=== PATIENT | female | born 1990 | race Caucasian/White ===

== ENCOUNTER 2016-11-08 12:45 | Inpatient (IN) | payer OTHER ==
[2016-11-08] MEDS ORDERED: Sodium Chloride 0.9% 1,000 ML IV STA ×4 (13:11→19:51)
[2016-11-08 13:24] LABS: ABG ALLEN TEST YES; ARTERIAL BLOOD GAS HCO3 23.5 mmol/L (21-28); ARTERIAL BLOOD GAS PH 7.57 (7.35-7.45); ARTERIAL BLOOD GAS PO2 100 mm/Hg (80-100)
[2016-11-08 13:24] LABS: BASO # 0.1 K/uL (0.0-0.2); BASO % 0.6 % (0.0-2.0); HEMATOCRIT 35.9 % (34.0-47.0); LYMPH # 0.9 K/uL (1.0-4.3); LYMPH % 4.4 % (20.0-40.0); MEAN CELL VOLUME 80.1 fl (81.0-99.0); MEAN CORPUSCULAR HEMOGLOBIN 26.3 pg (27.0-31.0); MEAN CORPUSCULAR HGB CONC 32.8 g/dL (33.0-37.0); MEAN PLATELET VOLUME 8.4 fl (7.2-11.7); MONO # 1.1 K/uL (0.0-0.8); MONO % 5.6 % (0.0-10.0); NEUT # 18.2 K/uL (1.8-7.0); NEUT % 89.4 % (50.0-75.0); NRBC % 0.1 % (0.0-0.0); PLATELET COUNT 250 K/uL (130-400); RED CELL DISTRIBUTION WIDTH 14.9 % (11.5-14.5)
[2016-11-08 13:37] LABS: ALB/GLOB RATIO 0.9 (1.0-2.1); ALKALINE PHOSPHATASE 102 U/L (38-126); ALT/SGPT 31 U/L (9-52); AMYLASE 49 U/L (30-110); AST/SGOT 47 U/L (14-36); BLOOD UREA NITROGEN 11 mg/dl (7-17); CALCIUM 9.1 mg/dL (8.4-10.2); CARBON DIOXIDE 16 mmol/L (22-30); CHLORIDE 95 mmol/L (98-107); GFR AFRICAN-AMERICAN > 60; GLUCOSE,RANDOM 368 mg/dL (65-105); LIPASE 16 U/L (23-300); MAGNESIUM 1.8 MG/DL (1.6-2.3); SODIUM 134 mmol/l (132-148); TOTAL PROTEIN 8.2 G/DL (6.3-8.2)
[2016-11-08 13:43] LABS: WHITE BLOOD COUNT 20.4 K/uL (4.8-10.8)
--- NOTE | 2016-11-08 13:45 | ED PDOC ---
Addendum entered and electronically signed by Barron Moss MD 11/14/16 03:04: - PA / OPEN TENTER OPERATOR / Resident Statement MD/DO has reviewed & agrees with the documentation as recorded. (PT. seen at bedside having rigors, HR elevated. ICU consult placed.) Addendum entered and electronically signed by Abraham Armstrong PA-C 11/08/16 19:58: Addendum Addendum: 11/08/16 19:51 patient started to have rigors, back pain, found to be tachy at 150; appears to be ST on CM; lungs CTA ekg repeat: ST at 144 normal intervals, no acute changes rectal temp 102.1 - 650 tylenol ordered Fluids opened for bolus of 1 litter morphine ordered for pain glucose FS- [address] Starks, discussed new finding discussed, requests ICU consult Case discussed with Dr. Bella, will be down for evaluation. Original Note: HPI: Abdomen Time Seen by Provider: 11/08/16 13:02 Chief Complaint (Nursing): GI Problem Chief Complaint (Provider): GI problem History Per: Patient History/Exam Limitations: no limitations Onset/Duration Of Symptoms: Days (2x) Current Symptoms Are (Timing): Still Present Severity: Moderate Associated Symptoms: Fever, Chills, Nausea, Vomiting, Back Pain Additional Complaint(s): 26 year old female patient with a past medical history of diabetic ketoacidosis presents to the ED with complaints of a GI problem. She has been having symptoms of nausea, vomiting, back pain, fever, chills, dizziness, and a headache for the past 2x days. She reports that she has nothing to check her sugar with, but she's been drinking extra fluids with no relief.S he went to see her PMD today, she found out she had a glucose level in the 400's so she was sent to the ED. PMD: Chaya Orozco MD. Past Medical History Reviewed: Historical Data, Nursing Documentation Vital Signs: Last Vital Signs Temp 98.3 F 11/08/16 18:14 Pulse 96 H 11/08/16 18:14 Resp 20 11/08/16 18:14 BP 120/65 11/08/16 18:14 Pulse Ox 99 11/08/16 19:31 - Medical History PMH: Diabetes (NIDDM) - Surgical History Surgical History: No Surg Hx - Family History Family History: States: Unknown Family Hx - Social History Alcohol: Social Drugs: Denies - Home Medications Home Medications: Ambulatory Orders Medication Instructions Recorded Metformin Hydrochloride [Metformin] 500 mg PO BID #14 tab 03/27/15 Ofloxacin [Ofloxacin 5 ml] 1 drop OS QID #30 carrie 03/27/15 - Allergies Allergies/Adverse Reactions: Allergies Allergy/AdvReac Type Severity Reaction Status Date / Time No Known Allergies Allergy Verified 03/27/15 18:17 Review of Systems ROS Statement: Except As Marked, All Systems Reviewed And Found Negative Constitutional: Positive for: Fever, Chills Cardiovascular: Negative for: Chest Pain Respiratory: Negative for: Shortness of Breath Gastrointestinal: Positive for: Nausea, Vomiting Musculoskeletal: Positive for: Back Pain Neurological: Positive for: Headache, Dizziness Physical Exam - Physical Exam Appears: Positive for: Well, Uncomfortable, In Acute Distress (mild GI distress) Skin: Positive for: Warm, Dry. Negative for: Normal Color (flushed) Eye Exam: Positive for: Normal appearance Neck: Positive for: Normal Cardiovascular/Chest: Positive for: Regular Rate, Rhythm, Chest Non Tender Respiratory: Positive for: Normal Breath Sounds. Negative for: Respiratory Distress Gastrointestinal/Abdominal: Positive for: Normal Exam, Soft. Negative for: Tenderness Back: Positive for: Normal Inspection, L CVA Tenderness, R CVA Tenderness Extremity: Positive for: Normal ROM, Capillary Refill (normal ). Negative for: Tenderness Neurologic/Psych: Positive for: Alert, Oriented (3x), Mood/Affect (emotional), Gait (normal ). Negative for: Motor/Sensory Deficits - Laboratory Results Result Diagrams: 11/08/16 13:10 11/08/16 13:10 - ECG O2 Sat by Pulse Oximetry: 99 (RA) Pulse Ox Interpretation: Normal - Radiology X-Ray: Read By Radiologist X-Ray Interpretation: No Acute Disease Medical Decision Making Medical Decision Makin:02 Initial impression: 26 year old female patient with a history of DKA has GI symptoms, fever, headache, dizziness, an back pain. Differential diagnoses include but are not limited to DKA, elevated sugars. Initial plan: * XRay chest 2 views * ABG shock panel * EKG * amylase * CMP * ketone serum, qualitative * lipase * magnesium * udip * CBC * IV NS 1,000ml: 1,000mls/hr * tylenol 974mg PO * zofran 4mg IVP * blood culture * urine culture * influlenza AB * rapid strep group A antigen * urinalysis * reevaluation 15:00 Blood work showed an elevated white blood cell count with a left shift, normal lactic acid. ABG was reviewed, no evidence of DKA. Her urine shows an infection , rocephin is ordered. Her glucose level was above 300, gave her second litter of NS fluids and 6 insulin IV. Her glucose level lowered to 270, continue IV fluids and order more insulin. ABG reviewed by Dr. Waters agrees with no signs of DKA, LA normal, Ph 7.5 CT for kidney evaluation. Patient has clinical pyelonephritis and will be admitted to [facility] on-call. Scribe Attestation: Documented by Courtney Nj, acting as a scribe for Abraham Armstrong MD. Provider Scribe Attestation: All medical record entries made by the Scribe were at my direction and personally dictated by me. I have reviewed the chart and agree that the record accurately reflects my personal performance of the history, physical exam, medical decision making, and the department course for this patient. I have also personally directed, reviewed, and agree with the discharge instructions and disposition. FINDINGS: Lower thorax: No acute findings. ABDOMEN: Liver: There is hepatomegaly and fatty infiltration of the liver. Liver length is 23.8 cm.There are no focal liver lesions present. Gallbladder and bile ducts: Unremarkable. No calcified stones. No ductal dilation. Pancreas: Unremarkable. No mass. No ductal dilation. Spleen: Unremarkable. No splenomegaly. Adrenals: Unremarkable. No mass. Kidneys and ureters: Heterogeneous enhancement pattern of the LEFT kidney consistent with acute pyelonephritis. No obstructing stones or hydronephrosis. Stomach and bowel: Unremarkable. No obstruction. No mucosal thickening. Appendix: A normal appendix is identified. PELVIS: Bladder: Minimal wall thickening consistent with UTI. No mass. Reproductive: Dominant rim enhancing follicle noted in the LEFT ovary. Normal RIGHT ovary and uterus. ABDOMEN and PELVIS: Intraperitoneal space: Unremarkable. No free air. No significant fluid collection. Bones/joints: No acute fracture. No dislocation. Soft tissues: There is a small fat-containing umbilical hernia. Vasculature: Unremarkable. No abdominal aortic aneurysm. Lymph nodes: Unremarkable. No enlarged lymph nodes. IMPRESSION: Acute LEFT pyelonephritis. Severe hepatomegaly and fatty infiltrative liver Thank you for allowing us to participate in the care of your patient. Dictated and Authenticated by: Xiomy Valdez MD 11/08/2016 6:08 PM Eastern Time ([place] & [place]) CT as above. call placed to Dr. Starks medicine showroom consultant. repeat glucose 260 patient would like a meal, insulin SC ordered. Case discussed with Dr. Starks including H&P, labs, new vitals, CT scan, all labs including ABG and accepts patient to her service. agrees with samuelhigretchen BP-120/65; P-96; T-98.3 Disposition - Clinical Impression Clinical Impression: Pyelonephritis, Uncontrolled diabetes mellitus, Dehydration - Patient ED Disposition Is Patient to be Admitted: No Counseled Patient/Family Regarding: Studies Performed, Diagnosis - Disposition Disposition Time: 18:30 Condition: STABLE - Pt Status Changed To: Hospital Disposition Of: Inpatient - Admit Certification Admit to Inpatient:: After my assessment, the patient will require hospitalization for at least two midnights. This is because of the severity of symptoms shown, intensity of services needed, and/or the medical risk in this patient being treated as an outpatient. - POA Present On Arrival: Poor Glycemic Control
[2016-11-08] MEDS ORDERED: Insulin Regular 100 units/ml IV STA (14:04)
[2016-11-08 14:09] LABS: RBC URINE 91 /hpf (0-3); URINE BACTERIA OCC (<OCC); URINE BILIRUBIN NEGATIVE (NEGATIVE); URINE BLOOD MODERATE (NEGATIVE); URINE COLOR YELLOW (YELLOW); URINE GLUCOSE (UA) >=500 mg/dL (Normal); URINE KETONE 80 mg/dL (NEGATIVE); URINE LEUKOCYTE ESTERASE MODERATE Leu/uL (Negative); URINE PROTEIN 100 mg/dL (NEGATIVE); URINE UROBILINOGEN 0.2-1.0 mg/dL (0.2-1.0); WBC URINE 77 /hpf (0-5)
[2016-11-08 14:21] LABS: NEUTROPHIL 81 % (42-75); TOTAL CELLS COUNTED 100
[2016-11-08 14:24] LABS: LARGE PLATELETS PRESENT
--- NOTE | 2016-11-08 14:32 | RAD ---
HISTORY: fever, chills COMPARISON: No prior. TECHNIQUE: Chest PA and lateral FINDINGS: LUNGS: No active pulmonary disease. PLEURA: No significant pleural effusion identified. No pneumothorax apparent. CARDIOVASCULAR: Normal. OSSEOUS STRUCTURES: No significant abnormalities. VISUALIZED UPPER ABDOMEN: Normal. OTHER FINDINGS: None. IMPRESSION: No active disease.
[2016-11-08] MEDS ORDERED: cefTRIAXone (Rocephin) 1 gm Inj ONE (15:09)
[2016-11-08] MEDS ORDERED: Insulin Regular 100 units/ml SC STA ×2 (15:59→18:56)
[2016-11-08] MEDS ORDERED: Iohexol 300 100 ML IJ ONE (17:15)
[2016-11-08] MEDS ORDERED: Sodium Chloride 0.9% 50 ML IV ONE (17:16)
[2016-11-08] MEDS ORDERED: Insulin Regular 100 units/ml ONE (18:15)
[2016-11-08] MEDS ORDERED: Gentamicin 80 mg/2mL Inj. ONE (19:50)
[2016-11-08] MEDS ORDERED: Gentamicin 80mg/50ml NS 50 ML IVPB STA (19:51)
--- NOTE | 2016-11-08 20:43 | CP.PCM.CON ---
History of Present Illness - History of Present Illness History of Present Illness: Attending: Adryan Starks MD PCP: Chaya Orozco MD Reason for Consult: Evaluation for IVCU and Critical care management Chief Complaint: Fever/Back pain/vomiting HPI: 26 years old Female with Hx of DM with Ketoacidosis, last time taking Metformin was 6 weeks ago, Now being sent to the ED by her PCP today, because of 3 days of body aches, nausea, vomiting, fever, and pain to both left and right flanks, the right worse than the left, continuous, not radiating to the groin with minimal relief with Advil. She referred no dysuria but had urinary frequency, dizziness and headaches. She also had a blood Glucose of 364mg/dl and urine +ve for ketones in the PCP's office. Here in the ED the patient was had rigors, a rectal temperature of 102.1F; tachycardia of 150/min ; and a WBC of 25.4 thousand. The blood sugar was 368mg/dl and Ketones +ve in the urine. 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 absent: Anorexia, Lethargy, Weakness - EENT Eyes: Requires Corrective Lenses. absent: Blurred Vision, Diplopia, Photophobia , Sees Flashes Ears: absent: Decreased Hearing, Ear Discharge, Ear Pain, Tinnitus Nose/Mouth/Throat: Dry Mouth. absent: Epistaxis, Nasal Congestion, Nasal Discharge, Sinus Pain, Sinus Pressure, Sore Throat - Cardiovascular Cardiovascular: Rapid Heart Rate. absent: Chest Pain, Dyspnea, Edema, Lightheadedness - Respiratory Respiratory: absent: Cough, Dyspnea, Wheezing, Stridor - Gastrointestinal Gastrointestinal: Nausea, Vomiting. absent: Abdominal Pain, Constipation, Diarrhea - Genitourinary Genitourinary: Flank Pain, Urinary Frequency. absent: Dysuria, Hematuria, Freq UTI - Musculoskeletal Musculoskeletal: Back Pain. absent: Arthralgias, Muscle Weakness, Neck Pain - Integumentary Integumentary: absent: Pruritus, Rash, Skin Ulcer, Sores, Striae, Swelling - Neurological Neurological: Dizziness, Headaches. absent: Confusion, Memory Loss, Weakness - Psychiatric Psychiatric: Anxiety. absent: Confusion, Depression, Panic Attacks - Endocrine Endocrine: Polydipsia. absent: Palpitations, Polyphagia, Polyuria - Hematologic/Lymphatic Hematologic: absent: Easy Bleeding, Easy Bruising Past Patient History - Past Medical History & Family History Past Medical History?: Yes - Past Social History Smoking Status: Light Smoker < 10 Cigarettes Daily Chewing Tobacco Use: No Cigar Use: No Alcohol: Social Drugs: Denies Home Situation {Lives}: With Family - CARDIAC Hx Cardiac Disorders: No - PULMONARY Hx Respiratory Disorders: No - NEUROLOGICAL Hx Neurological Disorder: No - HEENT Hx HEENT Problems: No - RENAL Hx Chronic Kidney Disease: No - ENDOCRINE/METABOLIC Hx Endocrine Disorders: Yes Hx Diabetes Mellitus Type 2: Yes - HEMATOLOGICAL/ONCOLOGICAL Hx Blood Disorders: No - INTEGUMENTARY Hx Dermatological Problems: No - MUSCULOSKELETAL/RHEUMATOLOGICAL Hx Musculoskeletal Disorders: No - GASTROINTESTINAL Hx Gastrointestinal Disorders: No - GENITOURINARY/GYNECOLOGICAL Hx Genitourinary Disorders: No - PSYCHIATRIC Hx Psychophysiologic Disorder: No Hx Substance Use: No - SURGICAL HISTORY Hx Section: Yes - ANESTHESIA Hx Anesthesia: Yes Hx Anesthesia Reactions: No Meds Allergies/Adverse Reactions: Allergies Allergy/AdvReac Type Severity Reaction Status Date / Time No Known Allergies Allergy Verified 11/08/16 20:05 - Medications Medications: Current Medications Sodium Chloride (Sodium Chloride 0.9%) 1,000 mls @ 500 mls/hr IV .Q2H STA Stop: 11/08/16 20:48 Last Admin: 11/08/16 18:52 Dose: 500 mls/hr Gentamicin Sulfate/Sodium Chloride (Gentamicin 80mg/50ml Ns) 50 mls @ 50 mls/ hr IVPB STAT STA Stop: 11/08/16 20:50 Last Admin: 11/08/16 20:12 Dose: 50 mls/hr Sodium Chloride (Sodium Chloride 0.9%) 1,000 mls @ 1,000 mls/hr IV .Q1H STA Stop: 11/08/16 20:50 Last Admin: 11/08/16 19:58 Dose: 1,000 mls/hr Physical Exam - Constitutional Appears: No Acute Distress - Head Exam Head Exam: ATRAUMATIC, NORMAL INSPECTION, NORMOCEPHALIC - Eye Exam Eye Exam: EOMI, Normal appearance Pupil Exam: NORMAL ACCOMODATION, PERRL - ENT Exam ENT Exam: Mucous Membranes Moist, Normal Exam, Normal External Ear Exam, Normal Oropharynx - Neck Exam Neck exam: Positive for: Full Rom, Normal Inspection. Negative for: Lymphadenopathy, Tenderness - Respiratory Exam Respiratory Exam: Clear to Auscultation Bilateral. absent: Rales, Rhonchi, Wheezes - Cardiovascular Exam Cardiovascular Exam: Tachycardia, REGULAR RHYTHM, +S1, +S2. absent: Gallop - GI/Abdominal Exam GI & Abdominal Exam: Normal Bowel Sounds, Soft. absent: Mass, Tenderness - Rectal Exam Rectal Exam: Deferred - Extremities Exam Extremities exam: Positive for: normal inspection. Negative for: calf tenderness, full ROM, pedal edema - Back Exam Back exam: CVA tenderness (L), CVA tenderness (R), NORMAL INSPECTION - Neurological Exam Neurological exam: Alert, CN II-XII Intact, Oriented x3, Reflexes Normal - Psychiatric Exam Psychiatric exam: Normal Affect, Normal Mood - Skin Skin Exam: Dry, Intact, Normal Color, Warm Results - Vital Signs Recent Vital Signs: Last Vital Signs Temp 102.1 F H 11/08/16 19:55 Pulse 140 H 11/08/16 19:40 Resp 17 11/08/16 19:40 BP 145/67 11/08/16 19:40 Pulse Ox 100 11/08/16 19:40 - Labs Result Diagrams: 11/08/16 13:10 11/08/16 21:25 - EKG Data EKG comments: Sinus Tachycardia 144/min. No sign of Ischemia - Imaging and Cardiology Chest x-ray Status: Report reviewed by me Additional comment: No infiltrate Assessment & Plan - Assessment and Plan (Free Text) Assessment: #. Acute Pyelonephritis #. sepsis #. Uncontrolled DM II with Ketosis Plan: 26 years old Female with Hx of DM with Ketoacidosis, last time taking Metformin was 6 weeks ago, Now being sent to the ED by her PCP today, because of 3 days of body aches, nausea, vomiting, fever, and pain to both left and right flanks, Frequency, no dysuria, elevated blood Glucose and urine ketones. #. Acute Pyelonephritis - Gentamycin 80mg IV Q8 - Rocephin 1gm daily - IV fluids NS - pain management with Toradol #. Sepsis with HR of 131/min; Temperature of 102.1F; WBC of 20.4 and a pyelonephritis - Consult Dr Barnett ID - follow Blood and urine Cultures - Antibiotics - IV fluids #. Uncontrolled DM II with Ketosis and elevated Anion gap - Patient received 3L of NS in ED - continue with Normal saline at 150/hr - Follow Anion gap, CO2 and electrolytes in blood works - Regular Insulin with accucheck Q4hrs - Levemir 10units HS and start Diabetic Diet #. DVT prophylaxis with Lovenox #. Code Status: Full - Date & Time Date: 11/08/16 Time: 20:43
[2016-11-08] MEDS ORDERED: Insulin Lispro (humaLOG) 100 Units/ml Inj SC SCH (21:15)
[2016-11-08 21:53] LABS: BLOOD UREA NITROGEN 12 mg/dl (7-17); CALCIUM 7.8 mg/dL (8.4-10.2); CARBON DIOXIDE 17 mmol/L (22-30); CHLORIDE 103 mmol/L (98-107); GFR AFRICAN-AMERICAN > 60; GLUCOSE,RANDOM 295 mg/dL (65-105); POTASSIUM 3.6 MMOL/L (3.6-5.0); SODIUM 133 mmol/l (132-148)
[2016-11-08] MEDS: Insulin Detemir 100 Units/ml Inj SC SCH (23:53)
[2016-11-09] MEDS: Insulin Regular 100 units/ml SC SCH ×7 (04:00→21:30)
[2016-11-09 07:12] LABS: BASO # 0.1 K/uL (0.0-0.2); BASO % 0.4 % (0.0-2.0); EOS % 0.1 % (0.0-4.0); HEMATOCRIT 30.9 % (34.0-47.0); LYMPH % 6.5 % (20.0-40.0); MEAN CELL VOLUME 80.6 fl (81.0-99.0); MEAN CORPUSCULAR HEMOGLOBIN 26.3 pg (27.0-31.0); MEAN CORPUSCULAR HGB CONC 32.6 g/dL (33.0-37.0); MEAN PLATELET VOLUME 8.4 fl (7.2-11.7); MONO # 1.2 K/uL (0.0-0.8); MONO % 8.1 % (0.0-10.0); NEUT # 12.7 K/uL (1.8-7.0); NEUT % 84.9 % (50.0-75.0); RED CELL DISTRIBUTION WIDTH 15.1 % (11.5-14.5)
--- NOTE | 2016-11-09 07:12 | CT ---
PROCEDURE: CT Abdomen and Pelvis with contrast HISTORY: fever, UTI COMPARISON: None. TECHNIQUE: Contrast dose: Radiation dose: Total exam DLP = mGy-cm. FINDINGS: LOWER THORAX: Unremarkable. LIVER: Unremarkable. No gross lesion or ductal dilatation. GALLBLADDER AND BILE DUCTS: Unremarkable. PANCREAS: Unremarkable. No gross lesion or ductal dilatation. SPLEEN: Unremarkable. ADRENALS: Unremarkable. No mass. KIDNEYS AND URETERS: Heterogeneous enhancement of the left kidney consistent with pyelonephritis. VASCULATURE: Unremarkable. No aortic aneurysm. BOWEL: Unremarkable. No obstruction. No gross mural thickening. APPENDIX: Normal appendix. PERITONEUM: Unremarkable. No free fluid. No free air. LYMPH NODES: Unremarkable. No enlarged lymph nodes. BLADDER: Unremarkable. REPRODUCTIVE: Unremarkable. BONES: No acute fracture. OTHER FINDINGS: None. IMPRESSION: Left pyelonephritis.
[2016-11-09 07:21] LABS: BLOOD UREA NITROGEN 17 mg/dl (7-17); CARBON DIOXIDE 20 mmol/L (22-30); CHLORIDE 104 mmol/L (98-107); GFR AFRICAN-AMERICAN > 60; GLUCOSE,RANDOM 299 mg/dL (65-105); POTASSIUM 3.8 MMOL/L (3.6-5.0); SODIUM 139 mmol/l (132-148)
[2016-11-09] MEDS ORDERED: Insulin Regular 100 units/ml SC SCH (07:30)
--- NOTE | 2016-11-09 07:44 | CP.CCUPN ---
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 T max yesterday 102.3F, now afebrile, BP 108 systolic, HR 120 sinus, SPO2 98% on RA, no urine output recorded. ROS: as above, no other pertinent negs or positives on 10 system review. PMFSH: all nursing and historical notes reviewed, no new pertinent data relevant to current problems. No other distress noted: EXAM- HEENT: no icterus, pupils equal and reactive NECK: no visible JVD, supple, carotids equal upstroke bilat/no bruits CHEST: decreased BS bases, no wheezes audible HEART: regular, tachy S1S2, no murmur audible, no rubs. ABD: soft, no increased distention, no focal tenderness, no HSM. BS hypoactive , EXT: no leg edema, no peripheral/ digital cyanosis, no calf tenderness or palpable cords, distal pulses intact and symmetrical NEURO: no gross focal motor deficits, AOx3 SKIN: no rashes LABS: WBC= 15.0 HGB= 10.1 PLTs= 180K Na= 139 K= 3.8 HCO3= 20 BUN/Cr= 17/0.7 BS= 299 CTAP results and film reviewed. Assessment: 1. Acute L Pyelonephritis 2. Uncontrolled DM 3. Chronic Disease Anemia PLAN: 1. Empiric Abx coverage with Rocephin/Gent, ID eval already ordered. Awaiting culture results. 2. May need IV insulin drip for improved control and maintenance of normoglycemia during this illness. Check Hgb A1c. 3. Has recd 3.0-3.5 L continue IVF hydration with LR. 4. Lactate levels normal.
--- NOTE | 2016-11-09 08:17 | CARD ---
APPROVED REPORT EKG Measurement Heart [id number] <Conclusion> Sinus tachycardia Nonspecific ST abnormality Abnormal ECG
[2016-11-09] MEDS ORDERED: Gentamicin 80mg/50ml NS 50 ML IVPB SCH (09:00)
[2016-11-09] MEDS: Lactated Ringer's 1,000 ML IV SCH ×2 (09:32→17:16)
[2016-11-09] MEDS: Enoxaparin 40 mg Syringe SC SCH (09:34)
[2016-11-09] MEDS: Meropenem 1 GM in Sodium Chloride 0.9% 100 ML IVPB SCH ×2 (12:37→23:22)
[2016-11-09] MEDS: Aztreonam 1 GM in Sodium Chloride 0.9% 100 ML IVPB SCH (21:00)
[2016-11-09] MEDS: Insulin Detemir 100 Units/ml Inj SC SCH (21:03)
--- NOTE | 2016-11-09 22:23 | CP.PCM.HP ---
History of Present Illness - History of Present Illness History of Present Illness: A 26 yr old female is with PMHx of DM ,migraine headaches was not on meds for few months is here with hx of left side back ache,started worsening for few days . UA found to be positive for infection.does have high fever ,denies nausea \vomiting. in ER she became tachycardic ,BP stable. Present on Admission - Present on Admission Any Indicators Present on Admission: No Review of Systems - Review of Systems Systems not reviewed;Unavailable: Unstable Vital Signs - Constitutional Constitutional: Fever, Headache, Malaise. absent: Snoring - EENT Eyes: Other Visual Disturbances. absent: Blurred Vision, Change in Vision Ears: absent: Dizziness Nose/Mouth/Throat: absent: Hoarsness, Sore Throat - Cardiovascular Cardiovascular: Rapid Heart Rate. absent: Chest Pain, Edema, Palpitations - Respiratory Respiratory: absent: Cough, Dyspnea, Chest Congestion, Excessive Mucous Production - Gastrointestinal Gastrointestinal: absent: Abdominal Pain, Bloating, Nausea, Vomiting - Genitourinary Genitourinary: Dysuria, Flank Pain. absent: Urinary Urgency - Musculoskeletal Musculoskeletal: absent: Arthralgias, Muscle Cramps - Neurological Neurological: absent: Tremor - Psychiatric Psychiatric: absent: Anxiety, Depression - Endocrine Endocrine: Fatigue - Hematologic/Lymphatic Hematologic: absent: Easy Bleeding, Lymphadenopathy Past Patient History - Past Medical History & Family History Past Medical History?: Yes - Past Social History Smoking Status: Light Smoker < 10 Cigarettes Daily Chewing Tobacco Use: No Cigar Use: No Alcohol: Social Drugs: Denies Home Situation {Lives}: With Family - CARDIAC Hx Cardiac Disorders: No - PULMONARY Hx Respiratory Disorders: No - NEUROLOGICAL Hx Neurological Disorder: No - HEENT Hx HEENT Problems: No - RENAL Hx Chronic Kidney Disease: No - ENDOCRINE/METABOLIC Hx Endocrine Disorders: Yes Hx Diabetes Mellitus Type 2: Yes - HEMATOLOGICAL/ONCOLOGICAL Hx Blood Disorders: No - INTEGUMENTARY Hx Dermatological Problems: No - MUSCULOSKELETAL/RHEUMATOLOGICAL Hx Musculoskeletal Disorders: No - GASTROINTESTINAL Hx Gastrointestinal Disorders: No - GENITOURINARY/GYNECOLOGICAL Hx Genitourinary Disorders: No - PSYCHIATRIC Hx Psychophysiologic Disorder: No Hx Substance Use: No - SURGICAL HISTORY Hx Section: Yes - ANESTHESIA Hx Anesthesia: Yes Hx Anesthesia Reactions: No Meds Allergies/Adverse Reactions: Allergies Allergy/AdvReac Type Severity Reaction Status Date / Time No Known Allergies Allergy Verified 11/08/16 20:05 Physical Exam - Constitutional Appears: In Acute Distress Additional comments: pain - Head Exam Head Exam: NORMAL INSPECTION - Eye Exam Eye Exam: EOMI, Normal appearance - ENT Exam ENT Exam: Mucous Membranes Dry - Neck Exam Neck exam: Negative for: Lymphadenopathy - Respiratory Exam Respiratory Exam: Clear to Auscultation Bilateral, NORMAL BREATHING PATTERN. absent: Decreased Breath Sounds - Cardiovascular Exam Cardiovascular Exam: Tachycardia, REGULAR RHYTHM, +S1, +S2 - GI/Abdominal Exam GI & Abdominal Exam: Normal Bowel Sounds, Soft. absent: Organomegaly, Tenderness - Extremities Exam Extremities exam: Positive for: normal capillary refill, pedal pulses present. Negative for: pedal edema - Back Exam Back exam: CVA tenderness (L). absent: rash noted - Neurological Exam Neurological exam: Alert, CN II-XII Intact, Oriented x3 - Psychiatric Exam Psychiatric exam: Normal Affect, Normal Mood - Skin Skin Exam: Normal Color Results - Vital Signs Recent Vital Signs: Last Vital Signs Temp 102.9 F H 11/09/16 21:06 Pulse 112 H 11/09/16 21:06 Resp 20 11/09/16 21:06 BP 118/59 L 11/09/16 18:08 Pulse Ox 100 11/09/16 21:06 - Labs Result Diagrams: 11/11/16 05:10 11/12/16 11:45 Labs: Laboratory Results - last 24 hr 11/08/16 11/09/16 11/09/16 23:52 02:56 05:30 WBC 15.0 H RBC 3.83 Hgb 10.1 L Hct 30.9 L MCV 80.6 L MCH 26.3 L MCHC 32.6 L RDW 15.1 H Plt Count 180 MPV 8.4 Neut % (Auto) 84.9 H Lymph % (Auto) 6.5 L Darke % (Auto) 8.1 Eos % (Auto) 0.1 Baso % (Auto) 0.4 Neut # 12.7 H Lymph # 1.0 Darke # 1.2 H Eos # 0.0 Baso # 0.1 Sodium 139 Potassium 3.8 Chloride 104 Carbon Dioxide 20 L Anion Gap 19 BUN 17 Creatinine 0.7 Est GFR ( Amer) > 60 Est GFR (Non-Af Amer) > 60 POC Glucose (mg/dL) 381 H 354 H Random Glucose 299 H Calcium 8.0 L 11/09/16 11/09/16 11/09/16 08:04 12:14 15:57 WBC RBC Hgb Hct MCV MCH MCHC RDW Plt Count MPV Neut % (Auto) Lymph % (Auto) Darke % (Auto) Eos % (Auto) Baso % (Auto) Neut # Lymph # Darke # Eos # Baso # Sodium Potassium Chloride Carbon Dioxide Anion Gap BUN Creatinine Est GFR ( Amer) Est GFR (Non-Af Amer) POC Glucose (mg/dL) 309 H 304 H 272 H Random Glucose Calcium 11/09/16 20:41 WBC RBC Hgb Hct MCV MCH MCHC RDW Plt Count MPV Neut % (Auto) Lymph % (Auto) Darke % (Auto) Eos % (Auto) Baso % (Auto) Neut # Lymph # Darke # Eos # Baso # Sodium Potassium Chloride Carbon Dioxide Anion Gap BUN Creatinine Est GFR ( Amer) Est GFR (Non-Af Amer) POC Glucose (mg/dL) 285 H Random Glucose Calcium - EKG Data EKG Interpreted by: Other - Imaging and Cardiology CT scan - abdomen Status: Report reviewed by me Chest x-ray Status: Report reviewed by me Assessment & Plan (1) Sepsis due to urinary tract infection Status: Acute (2) Dehydration Status: Acute (3) Uncontrolled diabetes mellitus Status: Acute (4) Ketoacidosis Status: Acute - Assessment and Plan (Free Text) Plan: 1. IVF 2.ICU CONSULT 3. ID CONSULT 4. IV ABX 5, TYELENOL prn 5.likley ketoacidosis is due to sepsis 6. monitor vitals and labs. Decision To Admit - Pt Status Changed To: Hospital Disposition Of: Inpatient - Admit Certification Admit to Inpatient:: After my assessment, the patient will require hospitalization for at least two midnights. This is because of the severity of symptoms shown, intensity of services needed, and/or the medical risk in this patient being treated as an outpatient. - . Bed Request Type: Intensive Care Admitting Physician: Adryan Starks
[2016-11-10] MEDS: Lactated Ringer's 1,000 ML IV SCH ×3 (04:50→21:20)
[2016-11-10] MEDS: Insulin Regular 100 units/ml SC SCH ×4 (05:40→12:54)
[2016-11-10 05:51] LABS: BASO % 0.3 % (0.0-2.0); HEMATOCRIT 29.7 % (34.0-47.0); LYMPH % 6.8 % (20.0-40.0); MEAN CELL VOLUME 80.4 fl (81.0-99.0); MEAN CORPUSCULAR HEMOGLOBIN 26.3 pg (27.0-31.0); MEAN CORPUSCULAR HGB CONC 32.8 g/dL (33.0-37.0); MEAN PLATELET VOLUME 8.4 fl (7.2-11.7); MONO # 1.1 K/uL (0.0-0.8); MONO % 7.3 % (0.0-10.0); NEUT # 12.4 K/uL (1.8-7.0); NEUT % 85.6 % (50.0-75.0); RED CELL DISTRIBUTION WIDTH 15.5 % (11.5-14.5); WHITE BLOOD COUNT 14.5 K/uL (4.8-10.8)
[2016-11-10 05:59] LABS: ALB/GLOB RATIO 0.7 (1.0-2.1); ALKALINE PHOSPHATASE 106 U/L (38-126); ALT/SGPT 36 U/L (9-52); AST/SGOT 42 U/L (14-36); BILIRUBIN,TOTAL 0.7 mg/dl (0.2-1.3); BLOOD UREA NITROGEN 10 mg/dl (7-17); CALCIUM 8.3 mg/dL (8.4-10.2); CARBON DIOXIDE 20 mmol/L (22-30); CHLORIDE 102 mmol/L (98-107); GFR AFRICAN-AMERICAN > 60; GLUCOSE,RANDOM 249 mg/dL (65-105); MAGNESIUM 1.9 MG/DL (1.6-2.3); POTASSIUM 3.6 MMOL/L (3.6-5.0); SODIUM 137 mmol/l (132-148); TOTAL PROTEIN 6.6 G/DL (6.3-8.2)
--- NOTE | 2016-11-10 07:48 | CON ---
DATE: 11/09/2016 HISTORY OF PRESENT ILLNESS: The patient is a 26-year-old female who has a history of diabetes who has not been taking her medications for at least 1 month. The patient stated she started feeling sick at work on , feeling fatigued, some chills and abdominal pain and went home. By Thursday morning, she had some right lower quadrant abdominal pain radiating to the back and had chills and sweats. She was also nauseous and vomiting and was unable to hold down any fluids or food. She went to see her primary care physician on Thursday, who did a blood sugar, which was over 350, probably closer to 400, but she does not remember, and advised her to go the Emergency Room, said she might be in diabetic ketoacidosis. When in the Emergency Room, it was discovered that she had a urinary tract infection and had a temperature also of 102-103. CT scan of the abdomen and pelvis showed a left pyelonephritis. it was consistent with heterogeneous enhancement of the left kidney consistent with pyelonephritis. LABORATORY DATA: White count is 20.4 on 11/08. On 11/09, which is today, the white count is 15. Hemoglobin is 10.1. She has a marked shift to the left and showed 6 bands. Chemistry showed a GFR of greater than 60 and a creatinine of 0.7. Her glucose were all over 300 and also her micro shows gram-negative rods in the urine. So far, no blood cultures, no growth after 24 hours, so we are waiting for those results. IMPRESSION AND PLAN: At the present time, I feel this is pyelonephritis and uncontrolled diabetes mellitus. The pyelonephritis, at the present time, would treat with meropenem 1 gram IV piggyback every 12 hours and Azactam 1 gram IV piggyback every 12 hours also. Would discontinue the Rocephin and the gentamicin at the present time. We will await the culture results and make decision whether we should continue with the meropenem and Azactam or refer her to another antibiotic therapy. PHYSICAL EXAMINATION: HEENT: The patient's tongue is dry. NECK: Supple, no adenopathy. LUNGS: Clear. HEART: Regular sinus rhythm, mildly tachycardic. ABDOMEN: Soft with right and left lower quadrant tenderness and left CVA tenderness, but, also, she has tenderness on the right CVA area also. EXTREMITIES: No CCE. DIAGNOSES: Once again, the diagnosis is uncontrolled diabetes mellitus, urinary tract infection with resultant pyelonephritis and treatment as already outlined. Alejo Barnett MD cc: [phone] TT: 11/10/2016 01:30:07 Confirmation # [id number] Dictation # [id number] ri 11/10/2016 06:47:29 HERMAN
[2016-11-10] MEDS: Aztreonam 1 GM in Sodium Chloride 0.9% 100 ML IVPB SCH ×2 (09:16→21:16)
[2016-11-10] MEDS: Enoxaparin 40 mg Syringe SC SCH (09:19)
[2016-11-10] MEDS: Meropenem 1 GM in Sodium Chloride 0.9% 100 ML IVPB SCH ×2 (12:55→16:44)
--- NOTE | 2016-11-10 16:07 | CP.PCM.PN ---
Subjective - Date & Time of Evaluation Date of Evaluation: 11/10/16 Time of Evaluation: 16:05 - Subjective Subjective: ID NOTE JUST HAD TEMPERATURE INCREASE TO 102.2 AFTER BEING AFEBRILE ALL DAY AND IS ACCOMPANIED BY CHILLS AND SWEATS CREATININE IS 0.5,GFR IS >60 BLOOD CULTURES SO FAR ARE NEGATIVE URINE CULTURE :E.COLI THAT SHOWS GOOD SENSITIVITIES TO MEROPEPENEM /AZACTAM HAVE ORDERED F/U BLOOD CULTURE WOULD CONSIDER OR NEPHROLOGY CONSULT Objective - Vital Signs/Intake and Output Vital Signs (last 24 hours): Temp Pulse Resp BP Pulse Ox 98.6 F 99 H 40 H 116/72 94 L 11/10/16 12:00 11/10/16 14:00 11/10/16 14:00 11/10/16 14:00 11/10/16 14:00 Intake and Output: 11/10/16 11/10/16 06:59 18:59 Intake Total 200 Balance 200 - Medications Medications: Current Medications Acetaminophen (Tylenol 325mg Tab) 650 mg PO Q4 PRN PRN Reason: Fever >100.4 F Last Admin: 11/10/16 04:56 Dose: 650 mg Enoxaparin Sodium (Lovenox) 40 mg SC DAILY NEENA PRN Reason: Protocol Last Admin: 11/10/16 09:19 Dose: 40 mg Hydromorphone HCl (Dilaudid) 1 mg IVP Q4 PRN PRN Reason: Pain, moderate (4-7) Last Admin: 11/10/16 12:50 Dose: 1 mg Lactated Ringer's (Lactated Ringer's) 1,000 mls @ 150 mls/hr IV .Q6H40M [facility] Last Admin: 11/10/16 09:18 Dose: 150 mls/hr Meropenem 1 gm/ Sodium (Chloride) 100 mls @ 100 mls/hr IVPB Q12H [facility] Last Admin: 11/10/16 12:55 Dose: 100 mls/hr Aztreonam 1 gm/ Sodium (Chloride) 100 mls @ 100 mls/hr IVPB Q12 [facility] Last Admin: 11/10/16 09:16 Dose: 100 mls/hr Insulin Detemir (Levemir) 16 units SC HS NEENA Insulin Human Lispro (Humalog) 8 units SC AC NEENA Insulin Human Lispro (Humalog) 0 units SC ACHS ENENA PRN Reason: Protocol Ketorolac Tromethamine (Toradol) 30 mg IVP Q6 PRN PRN Reason: Pain, severe (8-10) Last Admin: 11/09/16 02:46 Dose: 30 mg Ketorolac Tromethamine (Toradol) 15 mg IVP Q6 PRN PRN Reason: Pain, moderate (4-7) Ondansetron HCl (Zofran Inj) 4 mg IVP Q4 PRN PRN Reason: Nausea/Vomiting Last Admin: 11/10/16 00:38 Dose: 4 mg - Labs Labs: 11/10/16 05:10 11/10/16 05:10
[2016-11-10] MEDS: Insulin Lispro (humaLOG) 100 Units/ml Inj SC SCH ×3 (16:41→21:45)
[2016-11-10] MEDS ORDERED: Insulin Detemir 100 Units/ml Inj SC SCH (22:00)
[2016-11-10] MEDS ORDERED: Albuterol-Ipratrop 3 mg / 0.5 (3 ml) UD INH PRN (22:15)
--- NOTE | 2016-11-10 22:48 | CP.PCM.PN ---
Subjective - Date & Time of Evaluation Date of Evaluation: 11/10/16 Time of Evaluation: 16:00 - Subjective Subjective: still spiking fever. able to eat jello. pain is better with pain meds. elevated WBC, on abx. hb-10. urine c\s grew-e.coli Objective - Vital Signs/Intake and Output Vital Signs (last 24 hours): Temp Pulse Resp BP Pulse Ox 102.8 F H 98 H 18 114/59 L 91 L 11/10/16 17:40 11/10/16 22:28 11/10/16 22:00 11/10/16 22:00 11/10/16 22:00 Intake and Output: 11/10/16 11/11/16 18:59 06:59 Intake Total 300 300 Output Total 200 Balance 300 100 - Medications Medications: Current Medications Acetaminophen (Tylenol 325mg Tab) 650 mg PO Q4 PRN PRN Reason: Fever >100.4 F Last Admin: 11/10/16 16:46 Dose: 650 mg Albuterol/Ipratropium (Duoneb 3 Mg/0.5 Mg (3 Ml) Ud) 3 ml INH RQ4 PRN PRN Reason: Shortness of Breath Last Admin: 11/10/16 22:30 Dose: 3 ml Enoxaparin Sodium (Lovenox) 40 mg SC DAILY NEENA PRN Reason: Protocol Last Admin: 11/10/16 09:19 Dose: 40 mg Hydromorphone HCl (Dilaudid) 1 mg IVP Q4 PRN PRN Reason: Pain, moderate (4-7) Last Admin: 11/10/16 12:50 Dose: 1 mg Lactated Ringer's (Lactated Ringer's) 1,000 mls @ 150 mls/hr IV .Q6H40M [facility] Last Admin: 11/10/16 21:20 Dose: 150 mls/hr Aztreonam 1 gm/ Sodium (Chloride) 100 mls @ 100 mls/hr IVPB Q12 [facility] Last Admin: 11/10/16 21:16 Dose: 100 mls/hr Meropenem 1 gm/ Sodium (Chloride) 100 mls @ 100 mls/hr IVPB Q8 [facility] Last Admin: 11/10/16 16:44 Dose: 100 mls/hr Insulin Detemir (Levemir) 16 units SC HS [facility] Last Admin: 11/10/16 21:42 Dose: 16 units Insulin Human Lispro (Humalog) 8 units SC AC NEENA Last Admin: 11/10/16 16:41 Dose: 8 units Insulin Human Lispro (Humalog) 0 units SC ACHS NEENA PRN Reason: Protocol Last Admin: 11/10/16 21:45 Dose: Not Given Ketorolac Tromethamine (Toradol) 30 mg IVP Q6 PRN PRN Reason: Pain, severe (8-10) Last Admin: 11/10/16 21:18 Dose: 30 mg Ketorolac Tromethamine (Toradol) 15 mg IVP Q6 PRN PRN Reason: Pain, moderate (4-7) Ondansetron HCl (Zofran Inj) 4 mg IVP Q4 PRN PRN Reason: Nausea/Vomiting Last Admin: 11/10/16 00:38 Dose: 4 mg - Labs Labs: 11/10/16 05:10 11/10/16 05:10 - Additional Findings Additional findings: - Head Exam Head Exam: NORMAL INSPECTION - Eye Exam Eye Exam: EOMI, Normal appearance - ENT Exam ENT Exam: Mucous Membranes Dry - Neck Exam Neck exam: Negative for: Lymphadenopathy - Respiratory Exam Respiratory Exam: Clear to Auscultation Bilateral, NORMAL BREATHING PATTERN. absent: Decreased Breath Sounds - Cardiovascular Exam Cardiovascular Exam: Tachycardia, REGULAR RHYTHM, +S1, +S2 - GI/Abdominal Exam GI & Abdominal Exam: Normal Bowel Sounds, Soft. absent: Organomegaly, Tenderness - Extremities Exam Extremities exam: Positive for: normal capillary refill, pedal pulses present. Negative for: pedal edema - Back Exam Back exam: CVA tenderness (L). absent: rash noted - Neurological Exam Neurological exam: Alert, CN II-XII Intact, Oriented x3 - Psychiatric Exam Psychiatric exam: Normal Affect, Normal Mood - Skin Skin Exam: Normal Color Assessment and Plan (1) Anemia Status: Chronic (2) Dehydration Status: Acute (3) Pyelonephritis Status: Acute (4) Uncontrolled diabetes mellitus Status: Acute - Assessment and Plan (Free Text) Plan: .conntinue abx pain meds PRN BLOOD SUGRAS BETTER CONTROLLED Acidosis normalised.
[2016-11-11] MEDS: Meropenem 1 GM in Sodium Chloride 0.9% 100 ML IVPB SCH ×3 (01:08→16:43)
[2016-11-11 05:55] LABS: HEMATOCRIT 29.7 % (34.0-47.0); MEAN CELL VOLUME 79.8 fl (81.0-99.0)
[2016-11-11 06:12] LABS: BLOOD UREA NITROGEN 12 mg/dl (7-17); CALCIUM 8.3 mg/dL (8.4-10.2); CARBON DIOXIDE 24 mmol/L (22-30); CHLORIDE 101 mmol/L (98-107); GFR AFRICAN-AMERICAN > 60; GLUCOSE,RANDOM 260 mg/dL (65-105); POTASSIUM 3.2 MMOL/L (3.6-5.0); SODIUM 140 mmol/l (132-148)
[2016-11-11 06:36] LABS: MEAN CORPUSCULAR HEMOGLOBIN 25.9 pg (27.0-31.0); MEAN CORPUSCULAR HGB CONC 32.5 g/dL (33.0-37.0); RED CELL DISTRIBUTION WIDTH 15.6 % (11.5-14.5); WHITE BLOOD COUNT 13.1 K/uL (4.8-10.8)
--- NOTE | 2016-11-11 06:42 | CON ---
DATE: 11/10/2016 ICU ROOM: 435. HISTORY OF PRESENT ILLNESS: This is a 26-year-old female with known history of type 2 diabetes, prev iously on metformin therapy, which she apparently discontinued over the past week or so and presents here with generalized body weakness and supervening fevers, chills and rigors with severe flank pain and has been evaluated to have acute pyelonephritis and is also being referred now for diabetic evalu ation because of persistent hyperglycemic accelerations as noted thereof. PAST MEDICAL HISTORY: As mentioned above, history of type 2 diabetes, previously on metformin, given as 500 mg b.i.d., which she discontinued over the past week or so prior to admission. She admits to having used insulin therapy at one point, but again was switched over to oral hypoglycemic therapy. FAMILY HISTORY: Positive for diabetes and hypertension. Her mother has type 2 insulin-requiring holland betes. SOCIAL HISTORY: The patient has a supportive family. She admits to smoking half a pack a day for so me years now, but denies any other illicit drug use. REVIEW OF SYSTEMS: As mentioned above, admits to generalized body weakness with episodic dizziness a nd lightheadedness, worse on the day of admission. Also, admits to easy fatigability and tiredness a nd suboptimal energy level. No chest pains or palpitations, but admits to episodic precordial tightn ess with shortness of breath, especially on exertion. Her oral intake has been nil and suboptimal wi th persistent nausea, dyspepsia, and presented here actually with intractable vomiting episodes. Als o, admits to vague upper abdominal pain with severe flank pain, right greater than left, especially o n the day of admission. Also, admits to marked polyuria, nocturia, polydipsia over the past week or so prior to admission. PHYSICAL EXAMINATION: GENERAL: An overweight female in no apparent distress. VITAL SIGNS: Blood pressure of 140/80, pulse of 100 beats per minute and regular, temperature was in itially 102 rectally yesterday and today is 100 degrees, respirations 20. Height is 5 feet 2 inches, weight is 175 pounds. HEENT: Head normocephalic. Eyes anicteric with pink conjunctivae. Fundoscopy not possible at this time. Ears, nose and throat otherwise normal. NECK: Supple. Thyroid gland is normal size. No carotid bruits. No cervical adenopathy. CARDIOPULMONARY: Some adynamic precordium. S1, S2 is rapid and regular. LUNGS: Clear to auscultation. ABDOMEN: Flat, soft with positive bowel sounds. EXTREMITIES: No peripheral edema. Pulses are +2 bilaterally. LABORATORY DATA: Her chemistries showed a BUN of 10, sodium 137, potassium 3.6, chloride 102, CO2 of 20, glucose 249 and creatinine 0.5. Hemoglobin A1c is 13.0%, glucose levels have ranged from 238-26 6 mg/dL. ASSESSMENT: This is a 26-year-old female with uncontrolled and decompensated type 1 insulin-dependen t diabetes, presenting here with diabetic ketoacidosis and dehydration with supervening acute pyelone phritis with fever, rigors, sinus tachycardia, and severe flank pain as noted. With recent metabolic decompensation and impaired leukocytosis from the marked hyperglycemic accelerations, she really is quite high risk for infections and bacteremia as noted thereof. PLAN OF MANAGEMENT: As discussed with the patient and the staff, we will start her right away on a m ore physiologic insulin regimen with a combination of basal and bolus insulin dosing and we will star t her with Levemir, giving her 16 units subQ at bedtime daily to start tonight. We will also add Hum alog given as 8 units subQ t.i.d. before meals to start at dinnertime today as ordered. We will farzad fy the coverage scale to obviate hypoglycemia and detailed orders have been given. We will continue the vigorous IV hydration to replenish the lost fluids and electrolytes as noted. We will obtain ser ial chemistries and supplement accordingly as needed. We will also reinforce diabetic education and dietary instructions at the time of this admission. We will consult our diabetic nurse educator, Ms. Delores Hughes, to initiate insulin self-administration techniques at this time. We will also cons ult dietary for nutritional evaluation and healthier food choices with weight loss efforts if at all possible. We will obtain serial chemistries and supplement accordingly as needed. We will follow. Kendra Miller MD cc: [id number] TT: 11/11/2016 06:41:40 Confirmation # [id number] Dictation # [id number] tn
[2016-11-11] MEDS: Insulin Lispro (humaLOG) 100 Units/ml Inj SC SCH ×7 (07:04→22:00)
--- NOTE | 2016-11-11 08:15 | PN ---
DATE: 11/10/2016 LOCATION: The patient in ICU, bed 435. TIME SPENT: 35 minutes. Seen and evaluated at the bedside. Past medical, family and social history reviewed. Postop day #3 status post right total hip replacement. Postop course noted an episode of atrial fibrillation, but remains alert and awake, but confused. No distress noted. PHYSICAL EXAMINATION: VITAL SIGNS: Temperature 98.6, heart rate 99 regular, respiratory rate 12-14 noted, but mostly in the lower 20s. Oxygen saturation 94% on room air. Intake 2100, output 300, positive 1800. Weight 175 pounds. HEENT: No icterus. Pupils equal and reactive. NECK: No JVD. Supple. No carotid bruit. CHEST: Bilateral breath sounds clear to auscultation. HEART: Rhythm regular. S1, S2 normal. No audible murmur or rub. ABDOMEN: Bowel sounds present, soft. EXTREMITIES: No leg edema. No peripheral or digital cyanosis. No palpable cord. NEUROLOGIC: Awake, alert, follows simple commands, but remains mostly confused. CURRENT MEDICATIONS: Tylenol 650 q. 4 p.r.n., aztreonam 1 gram IV q. 12, Lovenox 40 subQ daily, Dilaudid 1 mg IV q. 4 p.r.n., Levemir 16 units subQ at night, Humalog 8 units subQ AC, . and at bedtime, Toradol 30 mg IV q. 6 p.r.n. for severe pain, Toradol 15 mg IV q. 6 p.r.n. for pain moderate, Ringers' lactate at 150 mL per hour, meropenem 1 gram IV q. 12, Zofran 4 mg IV q. 4. LABORATORY DATA: WBC 14.5, hemoglobin 9.7, hematocrit 29.7, platelet count 185 , neutrophils 85.6, lymphocytes 6.8, monocytes 7.3. ABG: pH 7.57, pCO2 20, pO2 100, saturation 100%. SMA-7: Sodium 137, potassium 3.6, chloride 102, CO2 20, anion gap 19, blood urea nitrogen 10, creatinine 0.5, glucose 249, calcium 8.3, phosphorus 2, magnesium 1.9, total bilirubin 0.7, AST 42, ALT 36, alkaline phosphatase 106, albumin 2.7. Urinalysis: RBC 91, leukoesterase moderate, urine bacteria occasionally. Toxicology: Serum ketones moderate. Serology: _ , group A beta,_ negative. Microbiology: Urine culture positive for E. coli. Abdomen and pelvis CAT scan: Heterogeneous enhancement of the left kidney consistent with pyelonephritis, otherwise unremarkable. IMPRESSION: Sepsis secondary to acute pyelonephritis, uncontrolled diabetes mellitus type 2, anemia of chronic disease. Continue current antibiotic, Zofran as needed and analgesics for pain. Continue IV fluid. Discussed with ID consult. Alan V Tahir MOON cc: [phone] TT: 11/10/2016 17:13:45 Confirmation # [id number] Dictation # [id number] mn MTDD
[2016-11-11 08:24] LABS: ABG ALLEN TEST YES; ARTERIAL BLOOD FLOW 2; ARTERIAL BLOOD GAS HCO3 26.8 mmol/L (21-28); ARTERIAL BLOOD GAS MODE NC; ARTERIAL BLOOD GAS O2 CAPACITY 13.3 mL/dL (16-24); ARTERIAL BLOOD GAS O2 CONTENT 12.3 ML/dL (15-23); ARTERIAL BLOOD GAS PH 7.54 (7.35-7.45); ARTERIAL BLOOD GAS PO2 49 mm/Hg (80-100); ARTERIAL BLOOD HGB O2 SAT 89.4 % (95.0-98.0); CARBOXYHEMOGLOBIN 2.2 % (0.5-1.5); HHB 7.5 % (0.0-5.0); METHEMOGLOBIN 0.9 % (0.0-3.0)
[2016-11-11] MEDS: Aztreonam 1 GM in Sodium Chloride 0.9% 100 ML IVPB SCH ×2 (08:32→20:45)
[2016-11-11] MEDS: Enoxaparin 40 mg Syringe SC SCH (08:34)
--- NOTE | 2016-11-11 09:44 | RAD ---
HISTORY: sob COMPARISON: Comparison is made to the previous study dated 11/08/2016 FINDINGS: LUNGS: Interval appearance of moderate to severe pulmonary vascular congestion since the previous study. Correlate clinically for pulmonary edema or ARDS. The differential diagnosis also includes fluid overload. PLEURA: No evidence of significant pleural effusion or pneumothorax. CARDIOVASCULAR: Normal. OSSEOUS STRUCTURES: No significant abnormalities. VISUALIZED UPPER ABDOMEN: Normal. OTHER FINDINGS: None. IMPRESSION: Suspicious for moderate to mildly severe pulmonary vascular congestion. Suboptimal study due to portable technique.
[2016-11-11] MEDS: Potassium Chloride 20 mEq ER Tab PO SCH (10:00)
--- NOTE | 2016-11-11 14:54 | PN ---
DATE: 11/11/2016 ROOM: 407 SUBJECTIVE: This is a 26-year-old female with recent uncontrolled type 1 insulin-dependent diabetes, presenting here with diabetic ketoacidosis and dehydration and has since then improved clinically an d metabolically as noted thereof. Her oral intake, however, remains very poor and suboptimal and zeenat iable as noted. Her latest chemistry showed a BUN of 12, sodium 140, potassium 3.2, chloride 101, CO 2 is 24, glucose is 260 and creatinine 0.6. Her glucose levels have ranged from 262-317 mg/dL. It w as 239-247 at bedtime last night. Her hemoglobin A1c is extremely elevated at 13.0%, which is indica tive of very poor outpatient metabolic control of her diabetic condition. So, at this time, we will modify her basal and bolus insulin regimen and increase the Humalog to 10 u nits subQ t.i.d. before meals to start at lunchtime today as ordered. We will also increase the basa l insulin with Levemir to be given as 20 units subQ at bedtime daily to start tonight. We will guzman nue the low-dose correction scale using Humalog insulin to obviate hypoglycemia and detailed orders h ave been given. We will follow and advise accordingly. Kendra Miller MD cc: [id number] TT: 11/11/2016 14:54:05 Confirmation # [id number] Dictation # [id number] sn
--- NOTE | 2016-11-11 15:45 | RAD ---
HISTORY: Shortness of breath, cough. Technique: Single view portable erect @ 04:30. COMPARISON: Multiple serial examinations preceding the most recent study: November 10, 2016. FINDINGS: LUNGS: Improving pulmonary edema. PLEURA: No significant pleural effusion identified, no pneumothorax apparent. CARDIOVASCULAR: No significant interval change compared to the prior examination(s). OSSEOUS STRUCTURES: No significant abnormalities. VISUALIZED UPPER ABDOMEN: Normal. OTHER FINDINGS: None. IMPRESSION: Improvement in pulmonary edema. No new/ acute findings.
--- NOTE | 2016-11-11 17:58 | PN ---
DATE: 11/11/2016 LOCATION: The patient in ICU, bed 435. TIME SPENT: 35 minutes. The patient is seen and evaluated at the bedside. Events since admission reviewed. Overnight events noted. The patient was noted to have shortness of breath. Chest x-ray obtained showed moderate pulmonary vascular congestion treated with diuretics, became less short of breath, saturated well. Remains afebrile. Noted a low-grade temperature of 100.1. Alert, awake, follows commands appropriate, mild shortness of breath noted. PHYSICAL EXAMINATION: VITAL SIGNS: Temperature 98.2, heart rate 89 and regular, respiratory rate 17, blood pressure 124/68, oxygen saturation 100% on oxygen 2 L nasal cannula. Intake 1380, output 1500, negative 120. HEAD, EYES, EARS, NOSE AND THROAT: Pupils are reactive. Conjunctivae are pink. Sclerae white. NECK: Supple. Trachea central. CHEST: Bilateral breath sounds. Clear to auscultation. HEART: Rhythm regular. S1, S2 normal intensity. No S3, S4 gallop. No audible murmur. ABDOMEN: Bowel sounds present, soft. Liver and spleen not palpable. Bladder not distended. EXTREMITIES: No edema. NEUROLOGIC: Nonfocal. CURRENT MEDICATIONS: Aztreonam 1 gram IV q. 12, meropenem 1 gram IV q. 8 hours , Lovenox 40 subQ daily, DuoNeb 3 mL q. 4 p.r.n., Dilaudid 1 mg IV q. 4 p.r.n., Levemir 20 units subQ at night, insulin lispro 10 units with meals, Tylenol _ 650 mg. 6 p.r.n. for moderate pain, potassium chloride supplement. LABORATORY DATA: WBC 13.1, hemoglobin 9.6, hematocrit 29.7, platelet count 205. ABG: pH 7.54, pCO2 29, pO2 49, saturating 92.3%. SMA-7: Sodium 140, potassium 3.2, chloride 101, CO2 24. Blood urea nitrogen 12, creatinine 0.6, glucose 260, calcium 8.3. Urinalysis microscopy: WBC 77, RBCs 91, leuk esterase moderate. Toxicology screen, serum ketones moderate. Influenza A and B negative. IMPRESSION: 1. Acute pyelonephritis, left, on meropenem and aztreonam. Sepsis, improved. Still with low grade fever, closely monitor resolution of leukocytosis and fever. 2. Diabetic ketoacidosis, status post insulin drip, currently on 1800 calorie diabetic diet. Levemir was increased to 20 units at night. Bolus insulin also increased. Maintain blood sugar less than 180 mg 3. Hypoxemia noted, improved after diuretics. Chest x-ray showed bilateral pulmonary vascular congestion. Continue to follow chest x-ray for further resolution of vascular congestion; however, evaluate for any developing pneumonia. Closely monitor respiratory status. Continue deep venous thrombosis and gastrointestinal prophylaxis. The patient can be transferred to telemetry floor. Alan Haro MD cc: [phone] TT: 11/11/2016 17:57:07 Confirmation # [id number] Dictation # [id number] tn MTDD
[2016-11-11] MEDS ORDERED: Insulin Detemir 100 Units/ml Inj SC SCH (22:00)
--- NOTE | 2016-11-11 23:43 | CP.PCM.PN ---
Subjective - Date & Time of Evaluation Date of Evaluation: 11/11/16 Time of Evaluation: 14:00 - Subjective Subjective: stable vitals. hb- low 9.8.,no fever for 24 hrs.denies abdominal pain. able to eat better.c\o headaches . controlled with pain meds. Objective - Vital Signs/Intake and Output Vital Signs (last 24 hours): Temp Pulse Resp BP Pulse Ox 98.6 F 71 18 109/70 95 11/11/16 20:36 11/11/16 20:56 11/11/16 20:36 11/11/16 20:36 11/11/16 20:36 Intake and Output: 11/11/16 11/12/16 18:59 06:59 Intake Total 780 Balance 780 - Medications Medications: Current Medications Acetaminophen (Tylenol 325mg Tab) 650 mg PO Q4 PRN PRN Reason: Fever >100.4 F Last Admin: 11/11/16 08:31 Dose: 650 mg Acetaminophen (Tylenol 325mg Tab) 650 mg PO Q6 PRN PRN Reason: Headache Last Admin: 11/11/16 21:00 Dose: 650 mg Albuterol/Ipratropium (Duoneb 3 Mg/0.5 Mg (3 Ml) Ud) 3 ml INH RQ4 PRN PRN Reason: Shortness of Breath Last Admin: 11/10/16 22:30 Dose: 3 ml Enoxaparin Sodium (Lovenox) 40 mg SC DAILY NEENA PRN Reason: Protocol Last Admin: 11/11/16 08:34 Dose: 40 mg Hydromorphone HCl (Dilaudid) 1 mg IVP Q4 PRN PRN Reason: Pain, moderate (4-7) Last Admin: 11/11/16 22:24 Dose: 1 mg Aztreonam 1 gm/ Sodium (Chloride) 100 mls @ 100 mls/hr IVPB Q12 [facility] Last Admin: 11/11/16 20:45 Dose: 100 mls/hr Meropenem 1 gm/ Sodium (Chloride) 100 mls @ 100 mls/hr IVPB Q8 [facility] Last Admin: 11/11/16 16:43 Dose: 100 mls/hr Insulin Detemir (Levemir) 20 units SC HS [facility] Last Admin: 11/11/16 22:16 Dose: 20 units Insulin Human Lispro (Humalog) 0 units SC ACHS NEENA PRN Reason: Protocol Last Admin: 11/11/16 16:31 Dose: Not Given Insulin Human Lispro (Humalog) 10 units SC AC [facility] Last Admin: 11/11/16 16:33 Dose: 10 units Ketorolac Tromethamine (Toradol) 30 mg IVP Q6 PRN PRN Reason: Pain, severe (8-10) Last Admin: 11/11/16 16:37 Dose: 30 mg Ketorolac Tromethamine (Toradol) 15 mg IVP Q6 PRN PRN Reason: Pain, moderate (4-7) Ondansetron HCl (Zofran Inj) 4 mg IVP Q4 PRN PRN Reason: Nausea/Vomiting Last Admin: 11/11/16 01:07 Dose: 4 mg Potassium Chloride (K-Dur 20 Meq Er Tab) 20 meq PO DAILY [facility] Last Admin: 11/11/16 10:00 Dose: 20 meq - Labs Labs: 11/11/16 05:10 11/11/16 05:10 - Additional Findings Additional findings: - Head Exam Head Exam: NORMAL INSPECTION - Eye Exam Eye Exam: EOMI, Normal appearance - ENT Exam ENT Exam: Mucous Membranes Dry - Neck Exam Neck exam: Negative for: Lymphadenopathy - Respiratory Exam Respiratory Exam: Clear to Auscultation Bilateral, NORMAL BREATHING PATTERN. absent: Decreased Breath Sounds - Cardiovascular Exam Cardiovascular Exam: Tachycardia, REGULAR RHYTHM, +S1, +S2 - GI/Abdominal Exam GI & Abdominal Exam: Normal Bowel Sounds, Soft. absent: Organomegaly, - Extremities Exam Extremities exam: Positive for: normal capillary refill, pedal pulses present. Negative for: pedal edema - Back Exam Back exam: no CVA tenderness . absent: rash noted - Neurological Exam Neurological exam: Alert, CN II-XII Intact, Oriented x3 - Psychiatric Exam Psychiatric exam: Normal Affect, Normal Mood - Skin Skin Exam: Normal Color
[2016-11-12] MEDS: Meropenem 1 GM in Sodium Chloride 0.9% 100 ML IVPB SCH ×3 (01:10→17:16)
[2016-11-12] MEDS: Insulin Lispro (humaLOG) 100 Units/ml Inj SC SCH ×7 (06:45→23:24)
[2016-11-12] MEDS: Potassium Chloride 20 mEq ER Tab PO SCH ×2 (10:02→17:18)
[2016-11-12] MEDS: Enoxaparin 40 mg Syringe SC SCH (10:02)
[2016-11-12] MEDS: Aztreonam 1 GM in Sodium Chloride 0.9% 100 ML IVPB SCH ×2 (11:13→23:30)
[2016-11-12 13:41] LABS: BLOOD UREA NITROGEN 10 mg/dl (7-17); CALCIUM 8.2 mg/dL (8.4-10.2); CARBON DIOXIDE 24 mmol/L (22-30); CHLORIDE 103 mmol/L (98-107); GFR AFRICAN-AMERICAN > 60; GLUCOSE,RANDOM 175 mg/dL (65-105); POTASSIUM 3.1 MMOL/L (3.6-5.0); SODIUM 141 mmol/l (132-148)
[2016-11-12] MEDS ORDERED: Apap-Butalbital-Caffeine 325-50-40mg Tab PO PRN (18:12)
--- NOTE | 2016-11-12 20:33 | CP.PCM.PN ---
Subjective - Date & Time of Evaluation Date of Evaluation: 11/12/16 Time of Evaluation: 08:00 - Subjective Subjective: . fever free. tolerating full diet. still on and off headaches. k-3.1, hb-9.6. on merrem\azetreonam Objective - Vital Signs/Intake and Output Vital Signs (last 24 hours): Temp Pulse Resp BP Pulse Ox 99.5 F 99 H 18 125/76 92 L 11/12/16 17:06 11/12/16 17:06 11/12/16 17:06 11/12/16 17:06 11/12/16 17:06 Intake and Output: 11/12/16 11/13/16 18:59 06:59 Intake Total 880 Balance 880 - Medications Medications: Current Medications Acetaminophen (Tylenol 325mg Tab) 650 mg PO Q4 PRN PRN Reason: Fever >100.4 F Last Admin: 11/11/16 08:31 Dose: 650 mg Acetaminophen (Tylenol 325mg Tab) 650 mg PO Q6 PRN PRN Reason: Headache Last Admin: 11/11/16 21:00 Dose: 650 mg Acetaminophen/Butalbital/Caffeine (Fioricet) 1 tab PO Q6 PRN PRN Reason: Headache Albuterol/Ipratropium (Duoneb 3 Mg/0.5 Mg (3 Ml) Ud) 3 ml INH RQ4 PRN PRN Reason: Shortness of Breath Last Admin: 11/10/16 22:30 Dose: 3 ml Aztreonam 1 gm/ Sodium (Chloride) 100 mls @ 100 mls/hr IVPB Q12 NEENA Last Admin: 11/12/16 11:13 Dose: 100 mls/hr Meropenem 1 gm/ Sodium (Chloride) 100 mls @ 100 mls/hr IVPB Q8 NEENA Last Admin: 11/12/16 17:16 Dose: 100 mls/hr Insulin Detemir (Levemir) 30 units SC HS NEENA Insulin Human Lispro (Humalog) 0 units SC ACHS NEENA PRN Reason: Protocol Last Admin: 11/12/16 17:22 Dose: Not Given Insulin Human Lispro (Humalog) 14 units SC AC [facility] Last Admin: 11/12/16 17:22 Dose: 14 units Ketorolac Tromethamine (Toradol) 30 mg IVP Q6 PRN PRN Reason: Pain, severe (8-10) Last Admin: 11/12/16 17:18 Dose: 30 mg Ketorolac Tromethamine (Toradol) 15 mg IVP Q6 PRN PRN Reason: Pain, moderate (4-7) Ondansetron HCl (Zofran Inj) 4 mg IVP Q4 PRN PRN Reason: Nausea/Vomiting Last Admin: 11/11/16 01:07 Dose: 4 mg Potassium Chloride (K-Dur 20 Meq Er Tab) 20 meq PO BID NEENA Last Admin: 11/12/16 17:18 Dose: 20 meq - Labs Labs: 11/11/16 05:10 11/12/16 11:45 - Additional Findings Additional findings: - Head Exam Head Exam: NORMAL INSPECTION - Eye Exam Eye Exam: EOMI, Normal appearance - ENT Exam ENT Exam: Mucous Membranes Dry - Neck Exam Neck exam: Negative for: Lymphadenopathy - Respiratory Exam Respiratory Exam: Clear to Auscultation Bilateral, NORMAL BREATHING PATTERN. absent: Decreased Breath Sounds - Cardiovascular Exam Cardiovascular Exam: Tachycardia, REGULAR RHYTHM, +S1, +S2 - GI/Abdominal Exam GI & Abdominal Exam: Normal Bowel Sounds, Soft. absent: Organomegaly, Tenderness - Extremities Exam Extremities exam: Positive for: normal capillary refill, pedal pulses present. Negative for: pedal edema - Back Exam Back exam: CVA tenderness no. absent: rash noted - Neurological Exam Neurological exam: Alert, CN II-XII Intact, Oriented x3 - Psychiatric Exam Psychiatric exam: Normal Affect, Normal Mood - Skin Skin Exam: Normal Color Assessment and Plan (1) Anemia Status: Chronic (2) Dehydration Status: Resolved (3) Pyelonephritis Status: Acute (4) Uncontrolled diabetes mellitus Status: Acute - Assessment and Plan (Free Text) Plan: iron panel d\c merrem labs in am cont aztreonam.
[2016-11-12] MEDS ORDERED: Insulin Detemir 100 Units/ml Inj SC SCH (22:00)
[2016-11-12 22:23] LABS: IRON 26 ug/dL (37-170)
[2016-11-13] MEDS: Insulin Lispro (humaLOG) 100 Units/ml Inj SC SCH ×3 (07:31→11:30)
--- NOTE | 2016-11-13 07:56 | PN ---
DATE: 11/12/2016 ROOM: 405. SUBJECTIVE: This is a 26-year-old female with recent uncontrolled type 1 insulin-dependent diabetes, presenting here with diabetic ketoacidosis and dehydration and continues to have hyperglycemic accel erations despite recent insulin dose adjustments undertaken. She also is being managed with IV antib iotics for acute pyelonephritis as noted on admission. Her glycemic levels are fluctuating ____. Th e latest glucose levels have ranged from 376-342 mg/dL. The latest chemistry ____ sodium 140, potass ium 3.2, chloride 101, CO2 24, glucose ____. So at this time, ____ insulin regimen ____ Humalog to 14 units subQ t.i.d. ____ lunchtime today as ordered. We will also increase the basal insulin with L evemir to be given as 30 units subQ at bedtime daily to start tonight. We will continue the low dose correction scale with Humalog insulin ____. We will obtain serial chemistries and supplement accord ingly as needed ____. Kendra Miller MD cc: [phone] TT: 11/12/2016 11:24:20 Confirmation # [id number] Dictation # [id number] carlos
[2016-11-13 07:59] VITALS: PULSE 80; O2SAT 96
[2016-11-13 08:12] LABS: BASO % 0.3 % (0.0-2.0); EOS # 0.2 K/uL (0.0-0.7); EOS % 1.5 % (0.0-4.0); HEMATOCRIT 29.8 % (34.0-47.0); LYMPH # 2.8 K/uL (1.0-4.3); LYMPH % 22.4 % (20.0-40.0); MEAN CORPUSCULAR HEMOGLOBIN 26.2 pg (27.0-31.0); MEAN CORPUSCULAR HGB CONC 33.1 g/dL (33.0-37.0); MEAN PLATELET VOLUME 8.3 fl (7.2-11.7); MONO # 1.7 K/uL (0.0-0.8); MONO % 13.6 % (0.0-10.0); NEUT # 7.8 K/uL (1.8-7.0); NEUT % 62.2 % (50.0-75.0); NRBC % 0.1 % (0.0-0.0); RED CELL DISTRIBUTION WIDTH 15.6 % (11.5-14.5); WHITE BLOOD COUNT 12.6 K/uL (4.8-10.8)
[2016-11-13 08:33] LABS: ALB/GLOB RATIO 0.8 (1.0-2.1); ALKALINE PHOSPHATASE 125 U/L (38-126); ALT/SGPT 44 U/L (9-52); AST/SGOT 51 U/L (14-36); BILIRUBIN,TOTAL 0.5 mg/dl (0.2-1.3); BLOOD UREA NITROGEN 9 mg/dl (7-17); CALCIUM 8.4 mg/dL (8.4-10.2); CARBON DIOXIDE 27 mmol/L (22-30); CHLORIDE 105 mmol/L (98-107); GFR AFRICAN-AMERICAN > 60; GLUCOSE,RANDOM 206 mg/dL (65-105); POTASSIUM 3.2 MMOL/L (3.6-5.0); SODIUM 140 mmol/l (132-148); TOTAL PROTEIN 6.7 G/DL (6.3-8.2)
[2016-11-13] MEDS ORDERED: Potassium Chloride 20 mEq ER Tab PO ONE (08:44)
[2016-11-13] MEDS: Aztreonam 1 GM in Sodium Chloride 0.9% 100 ML IVPB SCH (09:00)
[2016-11-13] MEDS: Potassium Chloride 20 mEq ER Tab PO SCH ×2 (09:24→16:03)
[2016-11-13] MEDS ORDERED: Lidocaine 1% Inj (20ml) ONE (12:01)
[2016-11-13 12:22] VITALS: BP 153/83; RESP 18; TEMP 99.6
--- NOTE | 2016-11-13 12:30 | PCM.SURG1 ---
Surgeon's Initial Post Op Note - Surgeon's Notes Surgeon: Marc Assembler [place]: None Type of Anesthesia: Local Pre-Operative Diagnosis: Infection. Operative Findings: Patent right basilic vein. Post-Operative Diagnosis: Infection. Operation Performed: Right basilic vein 4F SL 34cm PICC placed. Specimen/Specimens Removed: None Estimated Blood Loss: EBL {In ML}: 1 Date of Surgery/Procedure: 11/13/16 Time of Surgery/Procedure: 12:20
--- NOTE | 2016-11-13 15:43 | VASCULAR ---
Procedure: Ultrasound and fluoroscopically placed Right upper extremity PICC. Clinical indication: Long-term IV antibiotics. Technique: The relative risks and indications of the procedure were explained to the patient and written informed consent obtained. The patient was placed supine on the angiographic table and the right arm prepped and draped in the usual sterile fashion. A tourniquet was applied to the right axilla. 1% lidocaine was used to anesthetize the skin and soft tissues at the puncture site above the elbow. The right basilic vein was punctured under direct ultrasound guidance with a micropuncture set. A permanent image was stored. A 0.018 guidewire was advanced centrally and used to measure the length to the SVC/RA junction. A 4 Lao single-lumen PICC, size 34 cm, was advanced to the SVC/RA junction under fluoroscopic guidance. The catheter was flushed and secured. The patient tolerated the procedure well. Postprocedure chest image was obtained to ensure location of the catheter tip at the SVC right atrial junction. Impression: Ultrasound and fluoroscopically placed right upper extremity PICC. A 4 Lao single-lumen PICC, size 34 cm was advanced to the SVC/RA junction. PICC ready for use.
--- NOTE | 2016-11-13 18:39 | PN ---
DATE: 11/13/2016 ROOM: 652. SUBJECTIVE: This is a 26-year-old female with recent uncontrolled type 1 insulin-dependent diabetes, presenting here with diabetic ketoacidosis and dehydration and has since then improved clinically an d metabolically as noted thereof. She also had a supervening severe right and left flank pain indica tive of acute pyelonephritis and has since then received IV antibiotics as noted and given. Her late st chemistry showed a BUN of 9, sodium 140, potassium 3.2, chloride 105, CO2 27, glucose 206, and cre atinine 0.5. Her glucose levels have ranged from 192-277 mg/dL. So at this time, we will continue t he same basal and bolus insulin regimen to allow for dose equilibration and keep her on the Humalog g iven as 14 units subQ t.i.d. before meals to start today as ordered. We will also continue the same basal insulin given as 30 units subQ at bedtime daily as given. We will titrate incrementally as ind icated to optimize metabolic control. We will follow and advise accordingly. Kendra Miller MD cc: [phone] TT: 11/13/2016 18:38:51 Confirmation # [id number] Dictation # [id number] carlos
--- NOTE | 2016-11-13 22:22 | CP.PCM.DIS ---
Provider - Provider Date of Admission: 11/08/16 18:23 Attending physician: Adryan Starks MD Time Spent in preparation of Discharge (in minutes): 30 Diagnosis - Discharge Diagnosis (1) Pyelonephritis Status: Acute (2) Anemia Status: Chronic Comment: ferrous sulfate (3) Dehydration Status: Resolved (4) Uncontrolled diabetes mellitus Status: Acute Comment: case discussed with ID-advise iv rocephin for a week with home infusion. PICC line Hospital Course - Lab Results Lab Results: Micro Results 11/10/16 17:00 Blood Blood Culture - Preliminary NO GROWTH AFTER 3 DAYS 11/11/16 14:02 Naris MRSA Culture (Admit) - Final MRSA NOT DETECTED 11/09/16 07:08 Urine Urine Culture - Final No Growth (<1,000 CFU/ML) 11/09/16 09:00 Naris MRSA Culture (Admit) - Final MRSA NOT DETECTED Most Recent Lab Values WBC 12.6 K/uL (4.8-10.8) H 11/13/16 07:45 RBC 3.77 Mil/uL (3.80-5.20) L 11/13/16 07:45 Hgb 9.9 g/dL (12.0-16.0) L 11/13/16 07:45 Hct 29.8 % (34.0-47.0) L 11/13/16 07:45 MCV 79.0 fl (81.0-99.0) L 11/13/16 07:45 MCH 26.2 pg (27.0-31.0) L 11/13/16 07:45 MCHC 33.1 g/dL (33.0-37.0) 11/13/16 07:45 RDW 15.6 % (11.5-14.5) H 11/13/16 07:45 Plt Count 368 K/uL (130-400) D 11/13/16 07:45 MPV 8.3 fl (7.2-11.7) 11/13/16 07:45 Neut % (Auto) 62.2 % (50.0-75.0) 11/13/16 07:45 Lymph % (Auto) 22.4 % (20.0-40.0) 11/13/16 07:45 [place] % (Auto) 13.6 % (0.0-10.0) H 11/13/16 07:45 Eos % (Auto) 1.5 % (0.0-4.0) 11/13/16 07:45 Baso % (Auto) 0.3 % (0.0-2.0) 11/13/16 07:45 Neut # 7.8 K/uL (1.8-7.0) H 11/13/16 07:45 Lymph # 2.8 K/uL (1.0-4.3) 11/13/16 07:45 [place] # 1.7 K/uL (0.0-0.8) H 11/13/16 07:45 Eos # 0.2 K/uL (0.0-0.7) 11/13/16 07:45 Baso # 0.0 K/uL (0.0-0.2) 11/13/16 07:45 Neutrophils % (Manual) 81 % (42-75) H 11/08/16 13:10 Band Neutrophils % 6 % (0-2) H 11/08/16 13:10 Lymphocytes % (Manual) 9 % (20-50) L 11/08/16 13:10 Monocytes % (Manual) 4 % (0-10) 11/08/16 13:10 Platelet Estimate Normal (NORMAL) 11/08/16 13:10 Large Platelets Present 11/08/16 13:10 Anisocytosis (manual) Slight 11/08/16 13:10 pCO2 29 mm/Hg (35-45) L 11/11/16 08:20 pO2 49 mm/Hg (80-100) L 11/11/16 08:20 HCO3 26.8 mmol/L (21-28) 11/11/16 08:20 ABG pH 7.54 (7.35-7.45) H 11/11/16 08:20 ABG Total CO2 25.7 mmol/L (22-28) 11/11/16 08:20 ABG O2 Saturation 92.3 % (95-98) L 11/11/16 08:20 ABG O2 Content 12.3 ML/dL (15-23) L 11/11/16 08:20 ABG Base Excess 2.6 mmol/L (-2.0-3.0) 11/11/16 08:20 ABG Hemoglobin 9.8 g/dL (11.7-17.4) L 11/11/16 08:20 ABG Carboxyhemoglobin 2.2 % (0.5-1.5) H 11/11/16 08:20 POC ABG HHb (Measured) 7.5 % (0.0-5.0) H 11/11/16 08:20 ABG Methemoglobin 0.9 % (0.0-3.0) 11/11/16 08:20 ABG O2 Capacity 13.3 mL/dL (16-24) L 11/11/16 08:20 Guido Test Yes 11/11/16 08:20 ABG Potassium 3.5 mmol/L (3.6-5.2) L 11/08/16 13:20 A-a O2 Difference 114.0 mm/Hg 11/11/16 08:20 Hgb O2 Saturation 89.4 % (95.0-98.0) L 11/11/16 08:20 Sodium 129.0 mmol/L (132-148) L 11/08/16 13:20 Chloride 100.0 mmol/L (98-107) 11/08/16 13:20 Glucose 378 mg/dL (65-105) H 11/08/16 13:20 Lactate 1.2 mmol/L (0.7-2.1) 11/08/16 13:20 Liter Flow 2 11/11/16 08:20 Vent Mode Nc 11/11/16 08:20 FiO2 28.0 % 11/11/16 08:20 Sodium 140 mmol/l (132-148) 11/13/16 07:45 Potassium 3.2 MMOL/L (3.6-5.0) L 11/13/16 07:45 Chloride 105 mmol/L (98-107) 11/13/16 07:45 Carbon Dioxide 27 mmol/L (22-30) 11/13/16 07:45 Anion Gap 11 (10-20) 11/13/16 07:45 BUN 9 mg/dl (7-17) 11/13/16 07:45 Creatinine 0.5 mg/dL (0.7-1.2) L 11/13/16 07:45 Est GFR ( Amer) > 60 11/13/16 07:45 Est GFR (Non-Af Amer) > 60 11/13/16 07:45 POC Glucose (mg/dL) 287 mg/dL (65-110) H 11/13/16 17:06 Random Glucose 206 mg/dL (65-105) H 11/13/16 07:45 Hemoglobin A1c 13.0 % (4.2-6.5) H 11/10/16 05:10 Lactic Acid 0.9 MMOL/L (0.7-2.1) 11/10/16 05:10 Calcium 8.4 mg/dL (8.4-10.2) 11/13/16 07:45 Phosphorus 2.0 mg/dl (2.5-4.5) L 11/10/16 05:10 Magnesium 1.9 MG/DL (1.6-2.3) 11/10/16 05:10 Iron 26 ug/dL (37-170) L 11/12/16 21:30 TIBC 269 ug/dL (250-450) 11/12/16 21:30 % Saturation 10 % (20-55) L 11/12/16 21:30 Ferritin 92.2 ng/mL 11/13/16 07:45 Total Bilirubin 0.5 mg/dl (0.2-1.3) 11/13/16 07:45 AST 51 U/L (14-36) H D 11/13/16 07:45 ALT 44 U/L (9-52) 11/13/16 07:45 Alkaline Phosphatase 125 U/L (38-126) 11/13/16 07:45 Total Protein 6.7 G/DL (6.3-8.2) 11/13/16 07:45 Albumin 2.9 g/dL (3.5-5.0) L 11/13/16 07:45 Globulin 3.8 gm/dL (2.2-3.9) 11/13/16 07:45 Albumin/Globulin Ratio 0.8 (1.0-2.1) L 11/13/16 07:45 Amylase 49 U/L (30-110) 11/08/16 13:10 Lipase 16 U/L (23-300) L 11/08/16 13:10 Procalcitonin 25.51 NG/ML (0.19-0.49) H 11/11/16 15:02 TSH 3rd Generation 1.09 mIU/ML (0.46-4.68) 11/08/16 14:24 Arterial Blood Potassium 3.5 mmol/L (3.6-5.2) L 11/08/16 13:20 Urine Color Yellow (YELLOW) 11/08/16 13:45 Urine Clarity Cloudy (Clear) 11/08/16 13:45 Urine pH 6.0 (5.0-8.0) 11/08/16 13:45 Ur Specific Mackey 1.028 (1.003-1.030) 11/08/16 13:45 Urine Protein 100 mg/dL (NEGATIVE) 11/08/16 13:45 Urine Glucose (UA) >=500 mg/dL (Normal) 11/08/16 13:45 Urine Ketones 80 mg/dL (NEGATIVE) 11/08/16 13:45 Urine Blood Moderate (NEGATIVE) 11/08/16 13:45 Urine Nitrate Negative (NEGATIVE) 11/08/16 13:45 Urine Bilirubin Negative (NEGATIVE) 11/08/16 13:45 Urine Urobilinogen 0.2-1.0 mg/dL (0.2-1.0) 11/08/16 13:45 Ur Leukocyte Esterase Moderate Jill/uL (Negative) 11/08/16 13:45 Urine RBC (Auto) 91 /hpf (0-3) H 11/08/16 13:45 Urine Microscopic WBC 77 /hpf (0-5) H 11/08/16 13:45 Ur Squamous Epith Cells 7 /hpf (0-5) H 11/08/16 13:45 Urine Bacteria Occ (<OCC) H 11/08/16 13:45 Serum Ketones Small (NEGATIVE) 11/10/16 05:10 Influenza Typ A,B (EIA) Negative for flu a/b (NEGATIVE) 11/08/16 13:45 Grp A Beta Strep Ag Negative (NEGATIVE) 11/08/16 13:45 - Hospital Course Hospital Course: responded well to abx.BS are high with [id number], optimised BS Discharge Exam - Head Exam Head Exam: NORMAL INSPECTION - Additional Findings Additional findings: Head Exam Head Exam: NORMAL INSPECTION - Eye Exam Eye Exam: EOMI, Normal appearance - ENT Exam ENT Exam: Mucous Membranes Dry - Neck Exam Neck exam: Negative for: Lymphadenopathy - Respiratory Exam Respiratory Exam: Clear to Auscultation Bilateral, NORMAL BREATHING PATTERN. absent: Decreased Breath Sounds - Cardiovascular Exam Cardiovascular Exam: no Tachycardia, REGULAR RHYTHM, +S1, +S2 - GI/Abdominal Exam GI & Abdominal Exam: Normal Bowel Sounds, Soft. absent: Organomegaly, Tenderness - Extremities Exam Extremities exam: Positive for: normal capillary refill, pedal pulses present. Negative for: pedal edema - Back Exam Back exam: CVA tenderness no. absent: rash noted - Neurological Exam Neurological exam: Alert, CN II-XII Intact, Oriented x3 - Psychiatric Exam Psychiatric exam: Normal Affect, Normal Mood - Skin Skin Exam: Normal Color Discharge Plan - Discharge Medications Prescriptions: Ferrous Sulfate [Feosol] 325 mg PO BID #30 tab Acetaminophen/Butalbital/Caf [Fioricet] 1 tab PO Q12 #10 tab Insulin Lispro [Humalog Kwikpen U-100] 14 unit SQ AC #1 insuln.pen Insulin Detemir [Levemir] 30 units SC HS #1 vial cefTRIAXone 1 gm [Rocephin 1 gram IVPB] 1 gm IVPB DAILY #10 bag - Follow Up Plan Condition: STABLE Disposition: HOME/ ROUTINE Instructions: Acute Pyelonephritis (DC) Additional Instructions: follow up with PMD
--- NOTE | 2016-11-17 08:11 | PQF SEPSIS ---
Dr. Starks History and Physical documented sepsis but Discharge Summary does not. Was diagnosis of sepsis ruled in or out? This form is a permanent part of the medical record Clarification of your documentation is requested to better reflect the severity of illness and intensity of treatment of your patient. Indicators present [] Temp < 96.8 or > 100.4 [] WBC count > 12,000/mm3 or <000/mm3 or 10% immature neutrophils [] Heart Rate > 90 [] Respiratory Rate > 20 [x] Fever or hypothermia [] Chills [] Positive blood cultures [] Hypotension [x] Metabolic acidosis (Elevated lactate level, anion gap or reduced blood pH) [] Acute confusion /Altered Mental Status [] Shock [] Other: [] Location in the medical record that reflects the above clinical findings: [] Treatment Provided: [] PHYSICIAN'S RESPONSE Based on your medical judgment of the clinical indicators outlined above, are you treating this patient for a known or suspected: [] Sepsis / Septicemia Please specify organism if known [] [] SIRS (Systemic Inflammatory Response Syndrome) [] Severe Sepsis (Sepsis with Associated Organ Dysfunction) [] Fever of Unknown Origin [] Other, please indicate: [] [] If Unable to Determine, please check the box, sign and date. Present On Admission (POA) Indicator: [] Present at the time of admission [] Not present at the time of admission [] Clinically Undetermined In responding to this query, please exercise your independent professional judgment. The fact that a question is asked does not imply that any particular answer is desired or expected. Thank you for your clarification on this documentation. If you have any questions please call:[ ] * Thank you, [ ]Ana Hurt half backer HERMAN
== END 2016-11-13 18:24 | disposition home or self-care (01) | DRG 871 ==
LOC: H.ER 12:45 → H.ERHOLD 18:23 → H.ICU/CCU 23:00 → H.TEL 11-11 12:49 → H.MEDSURG1 11-12 13:59
PROVIDERS: ADMIT Internal Medicine; ATTEND Internal Medicine
PROC: 02HV33Z Insertion of Infusion Device into Superior Vena Cava, Percutaneous Approach (ICD-10-PCS; principal; 2016-11-13)
DX: A41.9 Sepsis, unspecified organism (principal); E10.10 Type 1 diabetes mellitus with ketoacidosis without coma; E87.2 Acidosis; N10 Acute pyelonephritis; D63.8 Anemia in other chronic diseases classified elsewhere; E86.0 Dehydration; F17.210 Nicotine dependence, cigarettes, uncomplicated; B96.20 Unspecified Escherichia coli [E. coli] as the cause of diseases classified elsewhere; R09.02 Hypoxemia

== ENCOUNTER 2018-02-17 21:53 | Emergency (ER) | payer OTHER ==
[2018-02-17 21:54] VITALS: BMI 31.1
[2018-02-17 21:59] VITALS: BP 145/82; PULSE 101; RESP 16; TEMP 98.5; O2SAT 100
[2018-02-17] MEDS ORDERED: Oxycodone/Acetaminophen 5/325 mg Tab PO STA (22:18)
--- NOTE | 2018-02-17 23:35 | ED PDOC ---
HPI: Dental Pain/Injury Time Seen by Provider: 02/17/18 22:03 Chief Complaint (Nursing): Dental Pain Chief Complaint (Provider): Right upper History Per: Patient History/Exam Limitations: no limitations Onset/Duration Of Symptoms: Days Current Symptoms Are (Timing): Still Present Additional Complaint(s): PT states she saw denitist on 02/10 and had a root canal on 02/12. PT states when pain continued she returned to dentist on 02/16 (yesterday). Pt states she has been on amoxicillin x 1 week. PT taking Tylenol #3 at home but it is not working. Pt prescribed 40 tylenol #3 in the last week by 2 different dentists. Pt without fever. Past Medical History Reviewed: Historical Data, Nursing Documentation, Vital Signs Vital Signs: Last Vital Signs Temp 98.5 F 02/17/18 21:57 Pulse 101 H 02/17/18 21:57 Resp 16 02/17/18 21:57 BP 145/82 02/17/18 21:57 Pulse Ox 100 02/17/18 21:57 - Medical History PMH: Diabetes (NIDDM), Migraine (Started 3 years ago. Took tylenol med), Pancreatitis (Dx with pancreatis 2 yrs. ago. Was treated and is symptom free.) Denies: HIV, Chronic Kidney Disease - Family History Family History: States: Unknown Family Hx - Living Arrangements Living Arrangements: With Family - Social History Current smoker - smoking cessation education provided: No - Home Medications Home Medications: Ambulatory Orders Medication Instructions Recorded Acetaminophen/Butalbital/Caf 1 tab PO Q12 #10 tab 11/13/16 [Fioricet] Ferrous Sulfate [Feosol] 325 mg PO BID #30 tab 11/13/16 Insulin Detemir [Levemir] 30 units SC HS #1 vial 11/13/16 Insulin Lispro [Humalog Kwikpen 14 unit SQ AC #1 insuln.pen 11/13/16 U-100] cefTRIAXone 1 gm [Rocephin 1 gram 1 gm IVPB DAILY #10 bag 11/13/16 IVPB] oxyCODONE/Acetaminophen [Percocet 1 ea PO Q6H PRN #5 tab 02/17/18 5/325 mg Tab] - Allergies Allergies/Adverse Reactions: Allergies Allergy/AdvReac Type Severity Reaction Status Date / Time No Known Allergies Allergy Verified 02/17/18 21:57 Review of Systems ROS Statement: Except As Marked, All Systems Reviewed And Found Negative Constitutional: Negative for: Fever, Chills ENT: Positive for: Other (Dental pain) Physical Exam - Reviewed Nursing Documentation Reviewed: Yes Vital Signs Reviewed: Yes - Physical Exam Appears: Positive for: Well, Non-toxic, No Acute Distress Head Exam: Positive for: ATRAUMATIC, NORMAL INSPECTION, NORMOCEPHALIC Skin: Positive for: Normal Color, Warm, DRY Eye Exam: Positive for: Normal appearance ENT: Positive for: Normal ENT Inspection, Other (No edema, absces formation, erythema or drainage from site of root canal ) Neck: Positive for: Normal Cardiovascular/Chest: Negative for: Bradycardia, Tachycardia Respiratory: Negative for: Accessory Muscle Use Back: Positive for: Normal Inspection Extremity: Positive for: Normal ROM Neurologic/Psych: Positive for: Alert, Oriented - ECG O2 Sat by Pulse Oximetry: 100 Medical Decision Making Medical Decision Making: Pt states she is nauseous from the pain. Zofran given before percocet. 1135 - PT sleeping on re-evaluation. Disposition - Clinical Impression Clinical Impression: Pain, dental - Patient ED Disposition Is Patient to be Admitted: No Counseled Patient/Family Regarding: Diagnosis, Need For Followup, Rx Given - Disposition Disposition: Routine/Home Disposition Time: 23:37 Condition: GOOD Prescriptions: oxyCODONE/Acetaminophen [Percocet 5/325 mg Tab] 1 ea PO Q6H PRN #5 tab PRN Reason: Pain, Severe (8-10) Instructions: Dental Pain
== END 2018-02-17 23:52 | disposition home or self-care (01) ==
LOC: H.ER 21:53
DX: K08.89 Other specified disorders of teeth and supporting structures (principal); E11.9 Type 2 diabetes mellitus without complications; K85.90 Acute pancreatitis without necrosis or infection, unspecified; Z79.4 Long term (current) use of insulin
CPT/HCPCS: 81025; 96372; 99282; J2405